=== PATIENT | male | born 1955 | race Caucasian/White ===

== ENCOUNTER 2022-03-14 16:47 | Emergency (ER) | payer MEDICARE ==
[2022-03-14] MEDS ORDERED: BABY ASPIRIN 81 MG CHEW PO ONE (17:30)
[2022-03-14] MEDS ORDERED: BENADRYL 50 MG/ML IV ONE (17:30)
[2022-03-14] MEDS ORDERED: ANTIVERT 25 MG PO ONE (17:32)
[2022-03-14] MEDS ORDERED: BABY ASPIRIN 81 MG CHEW ONE (17:58)
[2022-03-14] MEDS ORDERED: BENADRYL 50 MG/ML ONE ×2 (17:58→17:59)
[2022-03-14] MEDS ORDERED: ANTIVERT 25 MG ONE (17:58)
[2022-03-14 18:00] LABS: Absolute Neutrophil Ct (ANC) 5.01 x10^3/uL (1.4-6.9); Basophil (Absolute #) 0.06 x10^3/uL (0-0.4); Eosinophil % 3.9 % (0.00-5.0); Eosinophil (Absolute #) 0.29 x10^3/uL (0-0.5); Hematocrit 48.4 % (42-50); Hemoglobin 14.9 g/dL (12.5-18.0); Lymphocyte (Absolute #) 1.55 x10^3/uL (1.0-4.6); Lymphocytes % 20.6 % (24.0-44.0); Mean Cell Volume 95.3 fL (78-100); Mean Corpuscular Hemoglobin 29.3 pg (26-32); Mean Corpuscular Hgb Concent. 30.8 g/dL (32-36); Monocyte (Absolute #) 0.59 x10^3/uL (0.0-1.3); Monocytes % 7.8 % (0.0-12.0); Neutrophil % 66.6 % (36.0-66.0); Platelet Count 353 x10^3/uL (150-450); Red Blood Count 5.08 x10^6/uL (4.1-5.6); White Blood Count 7.5 x10^3/uL (4.0-10.5)
--- NOTE | 2022-03-14 18:06 | ERPHSYRPT ---
- History of Present Illness Time Seen by Provider: 03/14/22 16:57 Source: patient Exam Limitations: no limitations Patient Subjective Stated Complaint: Pt states that since last night he would look at something and it would look like it was moving back and forth and he wo uld get dizzy and then he would be nauseous, he has stayed in bed all day Triage Nursing Assessment: Pt brought to the ER by his , hypertensive, denies pain, numbness and tingling in the fingers of [place] hands, when pt stands he gets light headed and dizzy and the pictures were moving when he was in bed at home but he denies it at this time while laying in the hospital bed, smoker, decreased appetite, drinks soda and coffee, pulses normal, skin n/w/d, doesn't appear to be in any distress Physician History: Dizziness, vertigo starting last night. No chest pain, shortness of breath. Patient states that he feels like the room is spinning when he stands up. He feels improved when laying down. He has not tried anything to make it better or worse. Patient does have a history of smoking cigarettes and stents. Timing/Duration: yesterday Severity: moderate Modifying Factors: Improves With: nothing (Patient states he has not tried to make it better or worse. He does feel improved when he is laying down.) Associated Symptoms: denies symptoms Allergies/Adverse Reactions: codeine Allergy (Verified 03/14/22 17:12) Home Medications: Aspirin EC 81 mg [Ecotrin 81 mg] 81 mg PO DAILY 03/14/22 [History] Carvedilol 3.125 mg [Coreg 3.125 MG] 3.125 mg PO BID 03/14/22 [History] Clopidogrel Bisulfate [Clopidogrel] 75 mg PO DAILY 03/14/22 [History] Isosorbide Mononitrate 30 mg [Imdur 30 MG] 30 mg PO DAILY 03/14/22 [History] Lisinopril 10 mg [Zestril 10 MG] 10 mg PO DAILY 03/14/22 [History] Temazepam [Restoril] 30 mg PO HS 03/14/22 [History] Hx Influenza Vaccination/Date Given: Yes Hx Pneumococcal Vaccination/Date Given: Yes Travel Risk - International Travel Have you traveled outside of the country in past 3 weeks: No - Coronavirus Screening Are you exhibiting any of the following symptoms?: No - Vaccine Status Have you recieved a Covid-19 vaccination: Yes [employer]: Moderna - Vaccination Dates Date of 2cond Vaccination (if applicable): 2020 - Review of Systems Constitutional: No Fever, No Chills Eyes: No Symptoms Ears, Nose, & Throat: No Symptoms Respiratory: No Cough, No Dyspnea Cardiac: No Chest Pain, No Edema, No Syncope Abdominal/Gastrointestinal: No Abdominal Pain, No Nausea, No Vomiting, No Diarrhea Genitourinary Symptoms: No Dysuria Musculoskeletal: No Back Pain, No Neck Pain Skin: No Rash Neurological: Vertigo, No Dizziness, No Focal Weakness, No Sensory Changes Psychological: No Symptoms Endocrine: No Symptoms All Other Systems: Reviewed and Negative - Past Medical History Pertinent Past Medical History: Yes Neurological History: No Pertinent History Cardiac History: Coronary Artery Disease, High Cholesterol, Hypertension, Myocardial Infarction ([place]) Respiratory History: Other Endocrine Medical History: No Pertinent History Musculoskeletal History: Degenerative Disk Disease, Osteoarthritis Other Medical History: COVID HX - IS VACCINATED WITH BOOSTER. HX OF 4 CARDIAC STENTS. HX OF L4-5 FUSION WITH RESIDUAL NUMBNESS IN LEFT LEG. - Past Surgical History Past Surgical History: Yes Cardiac: Cardiac Stent Gastrointestinal: Appendectomy Musculoskeletal: Other - Social History Smoking Status: Current every day smoker Exposure to second hand smoke: Yes Drug Use: none Patient Lives Alone: No - Nursing Vital Signs Nursing Vital Signs: Initial Vital Signs Temperature 96.7 F 03/14/22 17:01 Pulse Rate 60 03/14/22 17:01 Blood Pressure 158/97 03/14/22 17:01 O2 Sat by Pulse Oximetry 99 03/14/22 17:01 Pain Scale Pain Intensity 0 - Physical Exam General Appearance: no apparent distress, alert Eye Exam: PERRL/EOMI, eyes nml inspection Ears, Nose, Throat Exam: normal ENT inspection, TMs normal, pharynx normal, moist mucous membranes Neck Exam: normal inspection, non-tender, supple, full range of motion Respiratory Exam: normal breath sounds, lungs clear, No respiratory distress Cardiovascular Exam: regular rate/rhythm, normal heart sounds, normal peripheral pulses Gastrointestinal/Abdomen Exam: soft, normal bowel sounds, No tenderness, No mass Back Exam: normal inspection, normal range of motion, No CVA tenderness, No vertebral tenderness Extremity Exam: normal inspection, normal range of motion, pelvis stable Neurologic Exam: alert, oriented x 3, cooperative, normal mood/affect, nml cerebellar function, nml station & gait, sensation nml, other (Full NIH stroke scale was completed. Patient has a NIH of 0. Vertigo symptoms are reproducible upon moving his head.), No motor deficits Skin Exam: normal color, warm, dry, No rash Lymphatic Exam: No adenopathy SpO2: 99 - Course Nursing assessment & vital signs reviewed: Yes EKG Interpreted by Me: Sinus Rhythm Ordered Tests: Active Orders 24 hr Category Date Time Status [facility] [employer] STAT Care 03/14/22 17:30 Active EKG-ER Only STAT Care 03/14/22 17:30 Active IV Insertion STAT Care 03/14/22 17:30 Active HEAD WITHOUT CONTRAST [CT] Stat Exams 03/14/22 17:49 Taken CBC W DIFF Stat Lab 03/14/22 17:45 Completed CMP Stat Lab 03/14/22 17:45 Completed NT PRO BNP Stat Lab 03/14/22 17:45 Completed TROPONIN Q4H Lab 03/14/22 17:45 Completed TROPONIN Q4H Lab 03/14/22 21:30 Ordered TROPONIN Q4H Lab 03/15/22 01:30 Ordered Medication Summary Discontinued Medications Generic Name Dose Route Start Last Admin Trade Name Freq PRN Reason Stop Dose Admin Aspirin 324 mg 03/14/22 17:30 03/14/22 18:04 Aspirin 81 Mg Tab.Chew PO 03/14/22 17:31 324 mg STAT ONE Administration Aspirin Confirm 03/14/22 17:58 Aspirin 81 Mg Tab.Chew Administered 03/14/22 17:59 Dose 324 mg .ROUTE .STK-MED ONE Diphenhydramine HCl 25 mg 03/14/22 17:30 03/14/22 18:06 Diphenhydramine Hcl 50 Mg/Ml Vial IV 03/14/22 17:31 25 mg STAT ONE Administration Diphenhydramine HCl Confirm 03/14/22 17:58 Diphenhydramine Hcl 50 Mg/Ml Vial Administered 03/14/22 17:59 Dose 50 mg .ROUTE .STK-MED ONE Diphenhydramine HCl Confirm 03/14/22 17:59 Diphenhydramine Hcl 50 Mg/Ml Vial Administered 03/14/22 18:00 Dose 50 mg .ROUTE .STK-MED ONE Droperidol 1.25 mg 03/14/22 17:30 03/14/22 18:08 Droperidol 5 Mg/2 Ml Vial IV 03/14/22 17:31 1.25 mg STAT ONE Administration Droperidol Confirm 03/14/22 17:58 Droperidol 5 Mg/2 Ml Vial Administered 03/14/22 17:59 Dose 5 mg .ROUTE .STK-MED ONE Meclizine HCl 25 mg 03/14/22 17:32 03/14/22 18:05 Meclizine Hcl 25 Mg Tablet PO 03/14/22 17:33 25 mg STAT ONE Administration Meclizine HCl Confirm 03/14/22 17:58 Meclizine Hcl 25 Mg Tablet Administered 03/14/22 17:59 Dose 25 mg .ROUTE .STK-MED ONE Lab/Rad Data: Laboratory Result Diagrams 03/14/22 17:45 03/14/22 17:45 Laboratory Results 03/14/22 03/14/22 03/14/22 Range/Units 17:45 17:45 17:45 WBC 7.5 (4.0-10.5) x10^3/uL RBC 5.08 (4.1-5.6) x10^6/uL Hgb 14.9 (12.5-18.0) g/dL Hct 48.4 (42-50) % MCV 95.3 (78-100) fL MCH 29.3 (26-32) pg MCHC 30.8 L (32-36) g/dL RDW 14.0 (11.5-14.0) % Plt Count 353 (150-450) x10^3/uL MPV 10.0 (7.5-11.0) fL Gran % 66.6 H (36.0-66.0) % Immature Gran % (Auto) 0.3 (0.00-0.4) % Nucleat RBC Rel Count 0.0 (0.00-0.1) % Eos # (Auto) 0.29 (0-0.5) x10^3/uL Immature Gran # (Auto) 0.02 (0.00-0.03) x10^3u/L Absolute Lymphs (auto) 1.55 (1.0-4.6) x10^3/uL Absolute Monos (auto) 0.59 (0.0-1.3) x10^3/uL Absolute Nucleated RBC 0.00 (0.00-0.01) x10^3u/L Lymphocytes % 20.6 L (24.0-44.0) % Monocytes % 7.8 (0.0-12.0) % Eosinophils % 3.9 (0.00-5.0) % Basophils % 0.8 (0.0-0.4) % Absolute Granulocytes 5.01 (1.4-6.9) x10^3/uL Basophils # 0.06 (0-0.4) x10^3/uL Sodium 137 (137-145) mmol/L Potassium 4.5 (3.5-5.1) mmol/L Chloride 103 (98-107) mmol/L Carbon Dioxide 25 (22-30) mmol/L Anion Gap 12.8 (5-15) MEQ/L BUN 18 (9-20) mg/dL Creatinine 1.12 (0.66-1.25) mg/dL Estimated GFR > 60.0 ML/MIN Glucose 112 H (74-106) mg/dL Calcium 9.4 (8.4-10.2) mg/dL Total Bilirubin 0.70 (0.2-1.3) mg/dL AST 23 (17-59) U/L ALT 21 (0-50) U/L Alkaline Phosphatase 86 (38-126) U/L Troponin I < 0.012 (0.000-0.034) ng/mL NT-Pro-B Natriuret Pep 28.7 (0-900) pg/mL Serum Total Protein 7.7 (6.3-8.2) g/dL Albumin 4.5 (3.5-5.0) g/dL - Progress Progress: improved Progress Note: 03/14/22 18:05 We will obtain a head CT tonight looking for any possible stroke. Peripheral versus central vertigo. Will obtain cardiac markers in case there is a cardiac component. We will do EKG, basic labs, meclizine, nausea medication. Will attempt to get patient feeling better and reexamine. 03/14/22 18:37 At the time of handoff I did discuss the above in detail with Dr. Fowler. He will follow-up on all labs, imaging and reexamine the patient. The ultimate disposition of the patient per results and Dr. Fowler's reexam. Counseled pt/family regarding: lab results, diagnosis - Departure Clinical Impression: Dizziness Condition: Stable Critical Care Time: No Referrals: JESSIE CHAVEZ MD [Primary Care Provider] - Follow up/PCP as directed
[2022-03-14 18:13] LABS: ALBUMIN 4.5 g/dL (3.5-5.0); ALKALINE PHOSPHATASE 86 U/L (38-126); ANION GAP 12.8 MEQ/L (5-15); BLOOD UREA NITROGEN 18 mg/dL (9-20); CHLORIDE 103 mmol/L (98-107); Calcium 9.4 mg/dL (8.4-10.2); Carbon Dioxide 25 mmol/L (22-30); Creatinine 1 1.12 mg/dL (0.66-1.25); EST GLOMERULAR FILTRATION RATE > 60.0 ML/MIN; Glucose 112 mg/dL (74-106); NT PRO BNP 28.7 pg/mL (0-900); Potassium 4.5 mmol/L (3.5-5.1); SGOT/AST 23 U/L (17-59); SGPT/ALT 21 U/L (0-50); SODIUM 137 mmol/L (137-145); Total Protein 7.7 g/dL (6.3-8.2)
[2022-03-14 19:27] VITALS: BP 113/77; PULSE 65; O2SAT 98
--- NOTE | 2022-03-15 08:33 | XRAY ---
Indication: Vertigo. No known injury. Multiple contiguous axial images obtained through the head without contrast. Comparison: None Normal appearing brain parenchyma, ventricles, and bony calvarium. Moderate mucosal thickening of both ethmoid and lesser degree both maxillary sinuses. Mastoid air cells are clear. Impression: Paranasal sinus disease. Remaining CT head without contrast exam is normal.
== END 2022-03-14 19:43 | disposition home or self-care (01) ==
LOC: ED 16:47
DX: R42 Dizziness and giddiness (principal); E78.5 Hyperlipidemia, unspecified; I10 Essential (primary) hypertension; Z72.0 Tobacco use; Z79.02 Long term (current) use of antithrombotics/antiplatelets; Z79.899 Other long term (current) drug therapy
CPT/HCPCS: 36000; 36415; 70450; 80053; 83880; 84484; 85025; 93005; 93041; 96374; 96375; 99284; J1200; A9270-GY